=== PATIENT | female | born 1935 | race Caucasian/White ===

== ENCOUNTER 2017-02-06 17:41 | Emergency (ER) | payer MEDICARE, OTHER ==
[2016-01-24 10:32] VITALS: BMI 33.6
[~2017-02-06 17:41] MED LIST: ASPIRIN EC81 M1 PO; BACTRIM DS TABL1 TAB PO; BETAPACE 80 MG80 MG; BETAPACE 80 MG80 MG PO; ELIQUIS5 MG PO; GLIPIZIDE10 MG PO; GLUCOPHAGE850 MG PO; GLUCOTROL 5 MG T5 MG PO; HCTZ25 MG PO; HUMULIN R100 U/ML SC; IMDUR30 MG PO; ISOSORBIDE MONO30 M1 PO; KLOR-CON 1010 MEQ; LASIX20 MG; LASIX20 MG PO; LISINOPRIL10 MG PO; NORVASC2.5 MG PO; ZANTAC150 MG PO; ZESTRIL20 MG PO; ZOCOR20 MG; ZOCOR20 MG PO
[2017-02-06 18:39] LABS: APPEARANCE HAZY (CLEAR); BILIRUBIN NEGATIVE (NEGATIVE); COLOR YELLOW (YELLOW); GLUCOSE 250 mg/dL (NEGATIVE); KETONE NEGATIVE (NEGATIVE); LEUKOCYTE ESTERASE NEGATIVE (NEGATIVE); NITRITE NEGATIVE (NEGATIVE); PROTEIN 1+ mg/dL (NEGATIVE); UROBILINOGEN NORMAL (NORMAL)
[2017-02-06 18:42] LABS: BACTERIA FEW /hpf (NONE SEEN); WHITE CELLS - URINE 0-5 /hpf (0-5)
[2017-02-06 18:43] LABS: BASOPHILS 0.2 % (0-2); EOSINOPHILS 2.8 % (0-7); HEMATOCRIT 32.6 % (36.0-48.0); HEMOGLOBIN 10.7 g/dL (12-16); IMMATURE GRANULOCYTES 0.2 % (0-5); LYMPHOCYTES 14.5 % (15-50); MCH 29.5 pg (26.0-34.0); MCHC 32.8 g/dL (31.0-37.0); MCV 89.8 fL (80.0-100.0); MEAN PLATELET VOLUME 10.4 fL (7.4-10.4); MONOCYTES 6.9 % (2-11); NEUTROPHILS 75.4 % (40-80); PLATELET COUNT 120 10x3/uL (130-400); RBC 3.63 10x6/uL (4.00-5.40); RDW 12.6 % (11.5-14.5); WBC 5.8 10x3/uL (4.8-10.8)
[2017-02-06 18:52] LABS: ANION GAP 11.6 mmol/L (8-16); CALCIUM 8.8 mg/dL (8.5-10.1); CARBON DIOXIDE 30.8 mmol/L (21.0-32.0); POTASSIUM - SERUM 4.4 mmol/L (3.5-5.1)
== END 2017-02-06 19:55 | disposition home or self-care (01) ==
LOC: D.ER 17:41
PROVIDERS: Nurse Practitioner Acute Care
DX: E11.65 Type 2 diabetes mellitus with hyperglycemia (principal); I10 Essential (primary) hypertension

== ENCOUNTER 2017-06-09 17:33 | Inpatient (IN) | payer MEDICARE, OTHER ==
[~2017-06-09] VITALS: Ht 154.9 cm; Wt 84.3 kg
[2017-06-09] MEDS ORDERED: LIPITOR40 MG PO (19:39)
[2017-06-09] MEDS ORDERED: K-DUR20 MEQ PO (19:41)
[2017-06-09] MEDS ORDERED: HUMALOG 30100 UNITS/ SC (19:45)
[2017-06-09] MEDS ORDERED: IBUPROFEN200 MG PO (19:46)
[2017-06-09 19:57] LABS: BASOPHILS 0.1 % (0-2); EOSINOPHILS 2.1 % (0-7); HEMATOCRIT 33.1 % (36.0-48.0); HEMOGLOBIN 10.5 g/dL (12-16); IMMATURE GRANULOCYTES 0.3 % (0-5); LYMPHOCYTES 10.3 % (15-50); MCH 27.7 pg (26.0-34.0); MCHC 31.7 g/dL (31.0-37.0); MCV 87.3 fL (80.0-100.0); MEAN PLATELET VOLUME 10.1 fL (7.4-10.4); MONOCYTES 9.7 % (2-11); NEUTROPHILS 77.5 % (40-80); PLATELET COUNT 128 10x3/uL (130-400); RBC 3.79 10x6/uL (4.00-5.40); RDW 14.2 % (11.5-14.5)
[2017-06-09 20:37] LABS: ALBUMIN 2.7 g/dL (3.4-5.0); ANION GAP 14.5 mmol/L (8-16); BILIRUBIN - TOTAL 0.67 mg/dL (0.2-1.3); CALCIUM 9.1 mg/dL (8.5-10.1); CARBON DIOXIDE 26.3 mmol/L (21.0-32.0); CREATININE - SERUM 2.1 mg/dL (0.6-1.3); POTASSIUM - SERUM 4.8 mmol/L (3.5-5.1); PROTEIN - SERUM 7.3 g/dL (6.4-8.2)
[2017-06-10 02:28] VITALS: BP 194/85; BMI 34.6
[2017-06-10 03:54] VITALS: BP 157/63
[2017-06-10 08:30] VITALS: BP 163/69
[2017-06-10 12:06] VITALS: BP 179/68
[2017-06-10 12:25] VITALS: Ht 154.9 cm; Wt 84.3 kg
[2017-06-10 16:06] VITALS: BP 158/64
[2017-06-10 21:25] VITALS: BP 167/95
[2017-06-11] VITALS (7 sets, daily range): BP systolic 139–183; BP diastolic 57–106
[2017-06-11 05:29] LABS: BASOPHILS 0.1 % (0-2); EOSINOPHILS 5.2 % (0-7); HEMATOCRIT 31.2 % (36.0-48.0); HEMOGLOBIN 9.9 g/dL (12-16); IMMATURE GRANULOCYTES 0.3 % (0-5); LYMPHOCYTES 12.2 % (15-50); MCH 27.7 pg (26.0-34.0); MCHC 31.7 g/dL (31.0-37.0); MCV 87.2 fL (80.0-100.0); MEAN PLATELET VOLUME 9.4 fL (7.4-10.4); MONOCYTES 9.7 % (2-11); NEUTROPHILS 72.5 % (40-80); RBC 3.58 10x6/uL (4.00-5.40); RDW 13.9 % (11.5-14.5); WBC 7.1 10x3/uL (4.8-10.8)
[2017-06-11 05:30] LABS: PLATELET COUNT 164 10x3/uL (130-400)
[2017-06-11 06:05] LABS: ALBUMIN 2.2 g/dL (3.4-5.0); ANION GAP 9.3 mmol/L (8-16); BILIRUBIN - TOTAL 0.63 mg/dL (0.2-1.3); CALCIUM 8.2 mg/dL (8.5-10.1); CARBON DIOXIDE 32.5 mmol/L (21.0-32.0); CREATININE - SERUM 1.7 mg/dL (0.6-1.3); MAGNESIUM - SERUM 1.6 mg/dL (1.8-2.4); PHOSPHOROUS 3.6 mg/dL (2.5-4.9); THYROID STIMULATING HORMONE 0.55 uIU/mL (0.36-3.74)
[2017-06-11 06:10] LABS: POTASSIUM - SERUM 3.8 mmol/L (3.5-5.1)
[2017-06-12 01:27] VITALS: BP 151/74
[2017-06-12 05:08] VITALS: BP 170/73
[2017-06-12 07:54] VITALS: BP 144/77
[2017-06-12 12:57] VITALS: BP 150/74
[2017-06-12 15:12] LABS: BASOPHILS 0.1 % (0-2); EOSINOPHILS 3.2 % (0-7); HEMATOCRIT 34.1 % (36.0-48.0); HEMOGLOBIN 10.8 g/dL (12-16); IMMATURE GRANULOCYTES 0.2 % (0-5); LYMPHOCYTES 9.3 % (15-50); MCH 27.4 pg (26.0-34.0); MCHC 31.7 g/dL (31.0-37.0); MCV 86.5 fL (80.0-100.0); MEAN PLATELET VOLUME 9.8 fL (7.4-10.4); MONOCYTES 9.6 % (2-11); NEUTROPHILS 77.6 % (40-80); RBC 3.94 10x6/uL (4.00-5.40); RDW 14.1 % (11.5-14.5)
[2017-06-12 15:13] LABS: PLATELET COUNT 197 10x3/uL (130-400); WBC 9.4 10x3/uL (4.8-10.8)
[2017-06-12 15:25] LABS: ANION GAP 10.8 mmol/L (8-16); CALCIUM 8.2 mg/dL (8.5-10.1); CARBON DIOXIDE 32.5 mmol/L (21.0-32.0); POTASSIUM - SERUM 4.3 mmol/L (3.5-5.1)
[2017-06-12 16:10] VITALS: BP 197/83
[2017-06-12 20:58] VITALS: BP 190/78
[2017-06-13 02:04] VITALS: BP 169/69
[2017-06-13 05:19] VITALS: BP 116/62
[2017-06-13 09:48] LABS: BASOPHILS 0.1 % (0-2); EOSINOPHILS 2.9 % (0-7); HEMATOCRIT 33.5 % (36.0-48.0); HEMOGLOBIN 10.7 g/dL (12-16); IMMATURE GRANULOCYTES 0.2 % (0-5); MCH 27.7 pg (26.0-34.0); MCHC 31.9 g/dL (31.0-37.0); MCV 86.8 fL (80.0-100.0); MEAN PLATELET VOLUME 9.9 fL (7.4-10.4); MONOCYTES 10.9 % (2-11); NEUTROPHILS 74.9 % (40-80); PLATELET COUNT 174 10x3/uL (130-400); RBC 3.86 10x6/uL (4.00-5.40); RDW 13.9 % (11.5-14.5); WBC 9.6 10x3/uL (4.8-10.8)
[2017-06-13 10:10] LABS: ANION GAP 8.6 mmol/L (8-16); CALCIUM 8.5 mg/dL (8.5-10.1); CREATININE - SERUM 1.8 mg/dL (0.6-1.3); POTASSIUM - SERUM 3.6 mmol/L (3.5-5.1); URIC ACID 10.3 mg/dL (2.6-7.2)
[2017-06-13 12:25] VITALS: BP 151/60
[2017-06-13 16:18] VITALS: BP 159/55
[2017-06-13 20:50] VITALS: BP 198/65
[2017-06-14 01:45] VITALS: BP 147/55
[2017-06-14 06:20] LABS: BASOPHILS 0.1 % (0-2); EOSINOPHILS 3.2 % (0-7); HEMOGLOBIN 9.8 g/dL (12-16); IMMATURE GRANULOCYTES 0.3 % (0-5); LYMPHOCYTES 10.1 % (15-50); MCH 27.5 pg (26.0-34.0); MCHC 31.6 g/dL (31.0-37.0); MCV 86.8 fL (80.0-100.0); MEAN PLATELET VOLUME 9.6 fL (7.4-10.4); MONOCYTES 10.4 % (2-11); NEUTROPHILS 75.9 % (40-80); PLATELET COUNT 175 10x3/uL (130-400); RBC 3.57 10x6/uL (4.00-5.40); RDW 13.9 % (11.5-14.5)
[2017-06-14 06:47] LABS: CALCIUM 8.6 mg/dL (8.5-10.1); CARBON DIOXIDE 30.6 mmol/L (21.0-32.0); CREATININE - SERUM 1.7 mg/dL (0.6-1.3); POTASSIUM - SERUM 3.6 mmol/L (3.5-5.1)
[2017-06-14 07:01] VITALS: BP 180/56
[2017-06-14 09:25] VITALS: BP 156/66
[2017-06-14 12:43] VITALS: BP 152/69
[2017-06-14 17:32] VITALS: BP 110/55
[2017-06-14 20:00] VITALS: BP 141/53
[2017-06-15] VITALS: BP 126/48
[2017-06-15 04:00] VITALS: BP 185/75
[2017-06-15 05:34] LABS: BASOPHILS 0.1 % (0-2); EOSINOPHILS 5.2 % (0-7); HEMATOCRIT 29.3 % (36.0-48.0); HEMOGLOBIN 9.3 g/dL (12-16); IMMATURE GRANULOCYTES 0.2 % (0-5); LYMPHOCYTES 11.1 % (15-50); MCH 27.4 pg (26.0-34.0); MCHC 31.7 g/dL (31.0-37.0); MCV 86.2 fL (80.0-100.0); MEAN PLATELET VOLUME 9.7 fL (7.4-10.4); NEUTROPHILS 74.4 % (40-80); PLATELET COUNT 189 10x3/uL (130-400); RDW 13.9 % (11.5-14.5); WBC 8.1 10x3/uL (4.8-10.8)
[2017-06-15 05:44] LABS: ANION GAP 10.5 mmol/L (8-16); CALCIUM 8.5 mg/dL (8.5-10.1); CARBON DIOXIDE 31.1 mmol/L (21.0-32.0); CREATININE - SERUM 1.7 mg/dL (0.6-1.3); POTASSIUM - SERUM 3.6 mmol/L (3.5-5.1)
[2017-06-15 10:18] VITALS: BP 160/59
[2017-06-15 17:37] VITALS: BP 115/50
[2017-06-15 17:51] VITALS: BP 164/79
[2017-06-15 22:33] VITALS: BP 135/758
[2017-06-16 04:40] VITALS: BP 140/54
[2017-06-16 07:09] LABS: BASOPHILS 0.1 % (0-2); EOSINOPHILS 5.8 % (0-7); HEMATOCRIT 30.5 % (36.0-48.0); HEMOGLOBIN 9.8 g/dL (12-16); IMMATURE GRANULOCYTES 0.2 % (0-5); LYMPHOCYTES 12.9 % (15-50); MCH 27.5 pg (26.0-34.0); MCHC 32.1 g/dL (31.0-37.0); MCV 85.7 fL (80.0-100.0); MEAN PLATELET VOLUME 9.8 fL (7.4-10.4); MONOCYTES 9.1 % (2-11); NEUTROPHILS 71.9 % (40-80); PLATELET COUNT 218 10x3/uL (130-400); RBC 3.56 10x6/uL (4.00-5.40); RDW 13.6 % (11.5-14.5); WBC 8.1 10x3/uL (4.8-10.8)
[2017-06-16 07:33] LABS: ANION GAP 12.4 mmol/L (8-16); CALCIUM 8.8 mg/dL (8.5-10.1); CARBON DIOXIDE 30.5 mmol/L (21.0-32.0); CREATININE - SERUM 1.7 mg/dL (0.6-1.3); POTASSIUM - SERUM 3.9 mmol/L (3.5-5.1)
[2017-06-16 07:57] VITALS: BP 191/87
[2017-06-16 09:19] LABS: MAGNESIUM - SERUM 1.8 mg/dL (1.8-2.4); PHOSPHOROUS 4.4 mg/dL (2.5-4.9)
[2017-06-16 11:19] VITALS: BP 181/76
[2017-06-16 15:54] VITALS: BP 161/074
[2017-06-16 21:44] VITALS: BP 138/73
[2017-06-17 04:47] VITALS: BP 186/80
[2017-06-17 06:01] LABS: BASOPHILS 0.2 % (0-2); EOSINOPHILS 5.8 % (0-7); HEMATOCRIT 28.5 % (36.0-48.0); HEMOGLOBIN 9.1 g/dL (12-16); IMMATURE GRANULOCYTES 0.3 % (0-5); LYMPHOCYTES 13.4 % (15-50); MCH 27.3 pg (26.0-34.0); MCHC 31.9 g/dL (31.0-37.0); MCV 85.6 fL (80.0-100.0); MEAN PLATELET VOLUME 10.1 fL (7.4-10.4); MONOCYTES 7.9 % (2-11); NEUTROPHILS 72.4 % (40-80); PLATELET COUNT 184 10x3/uL (130-400); RBC 3.33 10x6/uL (4.00-5.40); RDW 13.7 % (11.5-14.5); WBC 6.6 10x3/uL (4.8-10.8)
[2017-06-17 06:34] LABS: ANION GAP 11.1 mmol/L (8-16); CALCIUM 8.4 mg/dL (8.5-10.1); CARBON DIOXIDE 31.9 mmol/L (21.0-32.0); CREATININE - SERUM 1.9 mg/dL (0.6-1.3); MAGNESIUM - SERUM 1.7 mg/dL (1.8-2.4)
[2017-06-17 07:49] VITALS: BP 122/74
[2017-06-17 11:48] VITALS: BP 122/58
[2017-06-17 16:18] VITALS: BP 122/73
[2017-06-17 21:03] VITALS: BP 178/76
[2017-06-18 04:49] VITALS: BP 180/75
[2017-06-18 05:58] LABS: BASOPHILS 0.1 % (0-2); EOSINOPHILS 5.4 % (0-7); HEMATOCRIT 30.1 % (36.0-48.0); HEMOGLOBIN 9.5 g/dL (12-16); IMMATURE GRANULOCYTES 0.3 % (0-5); LYMPHOCYTES 10.6 % (15-50); MCH 27.4 pg (26.0-34.0); MCHC 31.6 g/dL (31.0-37.0); MCV 86.7 fL (80.0-100.0); MEAN PLATELET VOLUME 9.6 fL (7.4-10.4); MONOCYTES 10.2 % (2-11); NEUTROPHILS 73.4 % (40-80); PLATELET COUNT 201 10x3/uL (130-400); RBC 3.47 10x6/uL (4.00-5.40); RDW 13.8 % (11.5-14.5); WBC 7.6 10x3/uL (4.8-10.8)
[2017-06-18 06:29] LABS: ANION GAP 11.3 mmol/L (8-16); CALCIUM 8.9 mg/dL (8.5-10.1); CARBON DIOXIDE 32.5 mmol/L (21.0-32.0); CREATININE - SERUM 1.8 mg/dL (0.6-1.3); POTASSIUM - SERUM 3.8 mmol/L (3.5-5.1)
[2017-06-18 08:01] VITALS: BP 136/64
[2017-06-18 12:33] VITALS: BP 118/49
[2017-06-18 16:06] VITALS: BP 154/74
[2017-06-18 19:00] VITALS: BP 166/54
[2017-06-19 04:00] VITALS: BP 191/79
[2017-06-19 06:43] LABS: BASOPHILS 0.1 % (0-2); EOSINOPHILS 7.2 % (0-7); HEMATOCRIT 29.2 % (36.0-48.0); HEMOGLOBIN 9.2 g/dL (12-16); IMMATURE GRANULOCYTES 0.3 % (0-5); LYMPHOCYTES 14.2 % (15-50); MCH 27.2 pg (26.0-34.0); MCHC 31.5 g/dL (31.0-37.0); MCV 86.4 fL (80.0-100.0); MEAN PLATELET VOLUME 10.4 fL (7.4-10.4); MONOCYTES 10.4 % (2-11); NEUTROPHILS 67.8 % (40-80); PLATELET COUNT 227 10x3/uL (130-400); RBC 3.38 10x6/uL (4.00-5.40); RDW 13.6 % (11.5-14.5); WBC 7.6 10x3/uL (4.8-10.8)
[2017-06-19 06:59] LABS: ANION GAP 10.8 mmol/L (8-16); CARBON DIOXIDE 32.7 mmol/L (21.0-32.0); CREATININE - SERUM 1.8 mg/dL (0.6-1.3); POTASSIUM - SERUM 3.5 mmol/L (3.5-5.1)
[2017-06-19 07:43] VITALS: BP 169/55
[2017-06-19 11:53] VITALS: BP 175/65
[2017-06-19 15:52] VITALS: BP 174/75
[2017-06-19 21:26] VITALS: BP 180/72
[2017-06-20 01:29] VITALS: BP 174/62
[2017-06-20 06:38] LABS: BASOPHILS 0.1 % (0-2); EOSINOPHILS 6.4 % (0-7); HEMATOCRIT 30.6 % (36.0-48.0); HEMOGLOBIN 9.6 g/dL (12-16); IMMATURE GRANULOCYTES 0.3 % (0-5); LYMPHOCYTES 10.1 % (15-50); MCH 27.4 pg (26.0-34.0); MCHC 31.4 g/dL (31.0-37.0); MCV 87.4 fL (80.0-100.0); MEAN PLATELET VOLUME 10.6 fL (7.4-10.4); MONOCYTES 10.1 % (2-11); PLATELET COUNT 243 10x3/uL (130-400); RDW 13.7 % (11.5-14.5); WBC 8.9 10x3/uL (4.8-10.8)
[2017-06-20 06:53] LABS: ANION GAP 10.1 mmol/L (8-16); CALCIUM 8.7 mg/dL (8.5-10.1); CARBON DIOXIDE 34.2 mmol/L (21.0-32.0); CREATININE - SERUM 1.7 mg/dL (0.6-1.3); POTASSIUM - SERUM 4.3 mmol/L (3.5-5.1)
[2017-06-20 08:22] VITALS: BP 189/84
[2017-06-20 12:55] VITALS: BP 152/58
[2017-06-20 16:25] VITALS: BP 153/70
[2017-06-20 21:27] VITALS: BP 171/67
[2017-06-21 01:46] VITALS: BP 150/50
[2017-06-21 05:40] VITALS: BP 161/65
[2017-06-21 08:49] VITALS: BP 146/50
[2017-06-21 12:52] VITALS: BP 116/65
[2017-06-21] MEDS ORDERED: MELATONIN 3 MG1 TAB PO (13:13)
[2017-06-21] MEDS ORDERED: ZYLOPRIM100 MG PO (13:13)
[2017-06-21 16:14] VITALS: BP 163/71
== END 2017-06-21 19:01 | DRG 291 ==
LOC: D.SDCHOLD 17:33 → D.M2 18:41 → D.SDCHOLD 06-10 12:55 → D.M2 06-21 19:01
PROVIDERS: Family Medicine; Family Medicine Adult Medicine; Internal Medicine Nephrology
DX: I13.0 Hypertensive heart and chronic kidney disease with heart failure and stage 1 through stage 4 chronic kidney disease, or unspecified chronic kidney disease (principal); I50.33 Acute on chronic diastolic (congestive) heart failure; N17.9 Acute kidney failure, unspecified; N18.3 Chronic kidney disease, stage 3 (moderate); I25.10 Atherosclerotic heart disease of native coronary artery without angina pectoris; E11.40 Type 2 diabetes mellitus with diabetic neuropathy, unspecified; E66.9 Obesity, unspecified; Z68.34 Body mass index [BMI] 34.0-34.9, adult; E11.22 Type 2 diabetes mellitus with diabetic chronic kidney disease

== ENCOUNTER 2017-06-21 18:47 | Inpatient (IN) | payer MEDICARE, OTHER ==
[~2017-06-21] VITALS: Ht 154.9 cm; Wt 84.1 kg
--- NOTE | ~2017-06-21 | RHP ---
PATIENT: ZULY TOBIAS MEDICAL RECORD: [id number] ACCOUNT: [id number] LOCATION:[facility]1117 : 33 ADMISSION DATE: 06/21/17 REHABILITATION HISTORY AND PHYSICAL EXAMINATION POST ADMISSION PHYSICIAN EXAMINATION DATE OF ADMISSION: 06/21/2017. ADMITTING DIAGNOSIS: Acute exacerbation of CHF. HISTORY OF PRESENT ILLNESS: The patient is an 81-year-old female patient admitted to inpatient rehabilitation with acute exacerbation of CHF. She was admitted to the hospital on 06/09/[address] Mendez's office. She present to the physician's office complaining of increasing dyspnea, worse with exertion, fatigue, weakness and elevated blood sugar for 2-3 days. On exam, she was dyspneic, noted to be worse with exertion. She had decreased breath sounds with rales throughout. Her O2 sat was 88%. Chest x-ray showed cardiomegaly with increased interstitial markings suggested mild interstitial pulmonary edema and a small pleural effusion. For this reason, she was admitted to the acute hospital after diuresis with IV Bumex. She was improving slowly. Previously, she was moderately independent with a cane for ADLs and mobility. She lives with her daughter, but she works during the day and the patient is alone. She has prolonged immobility with progressive generalized weakness, especially in the lower extremities suspecting her tolerance for PT. She is very fatigued, limited in flexion and extension of her lower extremities, proximal muscle weakness is noted, and moderate to max assist for ADLs, moderate to max assist for her gait, for sit to stand, and also bed to chair. She is highly motivated and has good family support to regain her strength and return back to her prior level of functioning. COMORBIDITIES: Include hypertension, paroxysmal atrial fib, chronic diastolic heart failure, COPD, cardiomegaly, pulmonary edema and pleural effusion, hypoxia, acute kidney injury, anemia of chronic disease, anemia, dyspnea, fatigue, weakness, neuropathy, and valvular heart disease. PAST MEDICAL HISTORY: Significant for diabetes, hypertension, CHF, AFib, coronary artery disease, and COPD. PAST SURGICAL HISTORY: Includes coronary artery bypass grafting, vertebroplasty, and she has had a mastectomy. ALLERGIES: PENICILLIN AND TETANUS TOXOID. CURRENT MEDICATIONS: Include potassium 20 mEq daily, Zestril 20 mg daily, Glipizide 10 mg in the morning and 5 mg with her evening meal, Lipitor 40 mg daily, aspirin chewable 81 mg daily, allopurinol 100 mg daily, polyethylene glycol 17 grams in 8 ounces of water daily, glucose as needed. She is on replacement protocol for low sugars. She is on Humalog low resistant sliding scale. She is on sotalol 80 mg b.i.d., Pepcid 20 mg b.i.d., melatonin 3 mg at bedtime, isosorbide mononitrate 30 mg b.i.d., and furosemide 80 mg b.i.d. HABITS: No current alcohol or tobacco use. FAMILY HISTORY: Noncontributory. HISTORY AND PHYSICAL [id number] MICHELINEZULY Jerardo SOCIAL HISTORY: The patient hopes to return back home with her family. REVIEW OF SYSTEMS: GENERAL: Does complain of weakness. HEENT: She denies cold, cough, or congestion. CARDIOVASCULAR: Denies chest pain. PHYSICAL EXAMINATION: VITAL SIGNS: Stable, afebrile. GENERAL: Elderly female in no acute distress, alert upon exam. HEENT: Normocephalic and atraumatic. Mucosa moist. NECK: Supple. No lymphadenopathy. LUNGS: Clear in [place]. HEART: Has a regular rate and rhythm. She does have a holosystolic murmur. ABDOMEN: Benign. EXTREMITIES: No clubbing, cyanosis or edema. NEUROLOGIC: She does have noted weakness. LABORATORY DATA: White count 7.6, H&H of 8.9 and 28.4, and platelet count is 218. Sodium is 137, potassium 3.8, BUN and creatinine of 70 and 1.8, and blood sugar is noted to be 227. ASSESSMENT: This is an 81-year-old female patient admitted to the rehab with a working diagnosis of CHF. The patient has potential to make improvement. We instituted the following multidisciplinary therapies including to, but not limited to physical, occupational, respiratory, speech, nutritional services, prosthetics and orthotics. Given her complex condition and risk for more complications, rehabilitation services cannot be provided at a low level of care such as a fdc facility. PLAN: 1. Admit to [facility] rehab for intensive inpatient therapy to include the following disciplines: A. Physical therapy to improve gait, all transfer skills and bed mobility to a modified independent level. B. Occupational therapy to improve activities of daily living to a modified independent level. C. Case management to assist with discharge planning and placement options. D. Nutrition to assist with nutritional needs. E. Rehabilitation nursing to assist in monitoring the patient's underlying medical conditions and to assist with any type of bowel or bladder management. 2. The patient's current medications and medical care will be continued. 3. The patient will be placed on standard fall precautions. 4. The patient's estimated length of stay is approximately 7-10 days. 5. Discuss this patient during care team staff meeting this week. TRANSINT:[id number] Voice Confirmation ID: [id number] DOCUMENT ID: [id number] SHILPI notes whether there has been none or any medical/functional change since admission: - No change since the PAS SHILPI attests patient continues to be appropriate for IRF: HISTORY AND PHYSICAL [id number] ZULY TOBIAS - Remains appropriate for the IRF HINA ARAIZA MD at 1317 CC: [id number] DICTATION DATE: 06/22/[address] JUSTICE: 06/22/17 1215 ADM IN [place] [id number] [place] [id number]
[~2017-06-21 18:47] MED LIST changes: +HUMALOG 30100 UNITS/ SC; +IBUPROFEN200 MG PO; +K-DUR20 MEQ PO; +LIPITOR40 MG PO; +MELATONIN 3 MG1 TAB PO; +ZYLOPRIM100 MG PO
[2017-06-21 23:56] VITALS: BP 171/55; BMI 35.1
[2017-06-22 00:43] VITALS: BP 171/55
[2017-06-22 05:14] LABS: BASOPHILS 0.3 % (0-2); EOSINOPHILS 7.1 % (0-7); HEMATOCRIT 28.4 % (36.0-48.0); HEMOGLOBIN 8.9 g/dL (12-16); IMMATURE GRANULOCYTES 0.3 % (0-5); MCH 27.1 pg (26.0-34.0); MCHC 31.3 g/dL (31.0-37.0); MCV 86.6 fL (80.0-100.0); MONOCYTES 7.5 % (2-11); NEUTROPHILS 72.8 % (40-80); PLATELET COUNT 218 10x3/uL (130-400); RBC 3.28 10x6/uL (4.00-5.40); RDW 13.4 % (11.5-14.5); WBC 7.6 10x3/uL (4.8-10.8)
[2017-06-22 06:13] LABS: ANION GAP 9.9 mmol/L (8-16); CARBON DIOXIDE 30.9 mmol/L (21.0-32.0); CREATININE - SERUM 1.8 mg/dL (0.6-1.3); POTASSIUM - SERUM 3.8 mmol/L (3.5-5.1)
[2017-06-22 08:00] VITALS: BP 205/79
[2017-06-22 13:59] VITALS: Ht 154.9 cm; Wt 84.1 kg
[2017-06-23 07:21] LABS: BASOPHILS 0.1 % (0-2); EOSINOPHILS 7.2 % (0-7); HEMATOCRIT 30.6 % (36.0-48.0); HEMOGLOBIN 9.4 g/dL (12-16); IMMATURE GRANULOCYTES 0.3 % (0-5); LYMPHOCYTES 12.3 % (15-50); MCH 26.7 pg (26.0-34.0); MCHC 30.7 g/dL (31.0-37.0); MCV 86.9 fL (80.0-100.0); MONOCYTES 6.2 % (2-11); NEUTROPHILS 73.9 % (40-80); PLATELET COUNT 257 10x3/uL (130-400); RBC 3.52 10x6/uL (4.00-5.40); RDW 13.7 % (11.5-14.5)
[2017-06-23 07:46] LABS: ANION GAP 10.3 mmol/L (8-16); CALCIUM 9.1 mg/dL (8.5-10.1); CARBON DIOXIDE 31.9 mmol/L (21.0-32.0); CREATININE - SERUM 1.8 mg/dL (0.6-1.3); POTASSIUM - SERUM 4.2 mmol/L (3.5-5.1)
[2017-06-23 08:15] VITALS: BP 163/67
[2017-06-24 08:00] VITALS: BP 168/62
[2017-06-24 19:04] VITALS: BP 185/79
[2017-06-25 06:00] LABS: BASOPHILS 0.1 % (0-2); EOSINOPHILS 7.4 % (0-7); HEMATOCRIT 27.7 % (36.0-48.0); HEMOGLOBIN 8.6 g/dL (12-16); IMMATURE GRANULOCYTES 0.3 % (0-5); LYMPHOCYTES 12.3 % (15-50); MCV 87.1 fL (80.0-100.0); MEAN PLATELET VOLUME 9.7 fL (7.4-10.4); MONOCYTES 8.6 % (2-11); NEUTROPHILS 71.3 % (40-80); PLATELET COUNT 228 10x3/uL (130-400); RBC 3.18 10x6/uL (4.00-5.40); RDW 13.7 % (11.5-14.5); WBC 7.6 10x3/uL (4.8-10.8)
[2017-06-25 06:22] LABS: ANION GAP 11.8 mmol/L (8-16); CALCIUM 8.8 mg/dL (8.5-10.1); CARBON DIOXIDE 32.5 mmol/L (21.0-32.0); CREATININE - SERUM 1.8 mg/dL (0.6-1.3); POTASSIUM - SERUM 4.3 mmol/L (3.5-5.1)
[2017-06-25 08:00] VITALS: BP 163/65
[2017-06-25 19:17] VITALS: BP 176/70
[2017-06-26 08:00] VITALS: BP 109/58
[2017-06-26 19:30] VITALS: BP 114/71
[2017-06-27 09:00] VITALS: BP 182/66
[2017-06-27 22:59] VITALS: BP 158/61
[2017-06-28 06:33] LABS: BASOPHILS 0.1 % (0-2); EOSINOPHILS 8.1 % (0-7); HEMATOCRIT 27.9 % (36.0-48.0); HEMOGLOBIN 8.5 g/dL (12-16); IMMATURE GRANULOCYTES 0.1 % (0-5); LYMPHOCYTES 12.3 % (15-50); MCH 26.7 pg (26.0-34.0); MCHC 30.5 g/dL (31.0-37.0); MCV 87.7 fL (80.0-100.0); MONOCYTES 8.6 % (2-11); NEUTROPHILS 70.8 % (40-80); PLATELET COUNT 221 10x3/uL (130-400); RBC 3.18 10x6/uL (4.00-5.40); RDW 13.9 % (11.5-14.5); WBC 7.9 10x3/uL (4.8-10.8)
[2017-06-28 06:52] LABS: ANION GAP 16.2 mmol/L (8-16); CALCIUM 8.8 mg/dL (8.5-10.1); CARBON DIOXIDE 27.7 mmol/L (21.0-32.0); CREATININE - SERUM 1.7 mg/dL (0.6-1.3); POTASSIUM - SERUM 3.9 mmol/L (3.5-5.1)
[2017-06-28 07:41] VITALS: BP 176/62
[2017-06-28 20:48] VITALS: BP 170/96
[2017-06-29 12:29] VITALS: BP 174/75
[2017-06-30 01:49] VITALS: BP 176/73
[2017-06-30 06:44] LABS: BASOPHILS 0.3 % (0-2); EOSINOPHILS 8.2 % (0-7); HEMATOCRIT 26.8 % (36.0-48.0); HEMOGLOBIN 8.2 g/dL (12-16); IMMATURE GRANULOCYTES 0.1 % (0-5); LYMPHOCYTES 15.4 % (15-50); MCH 26.6 pg (26.0-34.0); MCHC 30.6 g/dL (31.0-37.0); MONOCYTES 9.1 % (2-11); NEUTROPHILS 66.9 % (40-80); PLATELET COUNT 195 10x3/uL (130-400); RBC 3.08 10x6/uL (4.00-5.40); RDW 14.2 % (11.5-14.5)
[2017-06-30 07:06] LABS: CALCIUM 8.7 mg/dL (8.5-10.1); CARBON DIOXIDE 32.8 mmol/L (21.0-32.0); CREATININE - SERUM 1.8 mg/dL (0.6-1.3); POTASSIUM - SERUM 3.8 mmol/L (3.5-5.1)
[2017-06-30 07:42] VITALS: BP 145/55
[2017-06-30 20:00] VITALS: BP 175/54
[2017-07-01 08:20] VITALS: BP 146/56
[2017-07-01 19:45] VITALS: BP 172/75
[2017-07-02 05:55] LABS: BASOPHILS 0 % (0-2); EOSINOPHILS 8.1 % (0-7); HEMATOCRIT 30.5 % (36.0-48.0); HEMOGLOBIN 9.4 g/dL (12-16); IMMATURE GRANULOCYTES 0.1 % (0-5); LYMPHOCYTES 11.5 % (15-50); MCH 26.9 pg (26.0-34.0); MCHC 30.8 g/dL (31.0-37.0); MCV 87.1 fL (80.0-100.0); MEAN PLATELET VOLUME 9.9 fL (7.4-10.4); MONOCYTES 8.6 % (2-11); NEUTROPHILS 71.7 % (40-80); PLATELET COUNT 172 10x3/uL (130-400); RDW 14.2 % (11.5-14.5); WBC 7.8 10x3/uL (4.8-10.8)
[2017-07-02 06:45] LABS: ANION GAP 10.4 mmol/L (8-16); CALCIUM 8.7 mg/dL (8.5-10.1); CARBON DIOXIDE 32.6 mmol/L (21.0-32.0); CREATININE - SERUM 1.8 mg/dL (0.6-1.3)
[2017-07-02 08:04] VITALS: BP 188/65
[2017-07-02 19:00] VITALS: BP 182/80
[2017-07-03 08:53] VITALS: BP 156/85
[2017-07-03 20:00] VITALS: BP 133/73
[2017-07-04 08:10] VITALS: BP 164/70
[2017-07-04 22:32] VITALS: BP 103/67
[2017-07-05 07:45] VITALS: BP 153/61
[2017-07-05 22:37] VITALS: BP 186/94
[2017-07-06 08:13] VITALS: BP 133/73
== END 2017-07-06 15:30 | disposition home health service (06) | DRG 291 ==
LOC: D.REHAB 18:47
PROVIDERS: Emergency Medicine
DX: I13.0 Hypertensive heart and chronic kidney disease with heart failure and stage 1 through stage 4 chronic kidney disease, or unspecified chronic kidney disease (principal); I50.33 Acute on chronic diastolic (congestive) heart failure; J90 Pleural effusion, not elsewhere classified; N17.9 Acute kidney failure, unspecified; I38 Endocarditis, valve unspecified; N18.3 Chronic kidney disease, stage 3 (moderate); E11.22 Type 2 diabetes mellitus with diabetic chronic kidney disease; I10 Essential (primary) hypertension; I48.0 Paroxysmal atrial fibrillation; J44.9 Chronic obstructive pulmonary disease, unspecified; I51.7 Cardiomegaly; R09.02 Hypoxemia; D63.8 Anemia in other chronic diseases classified elsewhere; R53.83 Other fatigue; R53.1 Weakness; E11.65 Type 2 diabetes mellitus with hyperglycemia; E11.40 Type 2 diabetes mellitus with diabetic neuropathy, unspecified